=== PATIENT | female | born 1945 | race Hispanic/Latino ===

== ENCOUNTER → 2017-07-03 | Outpatient (CLI) | payer MEDICARE | END | disposition home or self-care (01) | LOC: RAH 13:53 | PROVIDERS: ATTEND Family Medicine | DX: R06.02 Shortness of breath (principal) | CPT/HCPCS: 71046 ==

== ENCOUNTER → 2017-08-15 | Outpatient (CLI) | payer OTHER, MEDICARE | END | disposition home or self-care (01) | LOC: SHCH 08:52 | PROVIDERS: ATTEND Internal Medicine Cardiovascular Disease | DX: I08.0 Rheumatic disorders of both mitral and aortic valves (principal); I10 Essential (primary) hypertension; Z95.0 Presence of cardiac pacemaker | CPT/HCPCS: 93306 ==

== ENCOUNTER → 2018-11-13 | Outpatient (CLI) | payer OTHER, MEDICARE | END | disposition home or self-care (01) | LOC: RAH 13:37 | PROVIDERS: ATTEND Family Medicine | DX: M79.605 Pain in left leg (principal); R60.0 Localized edema; M79.89 Other specified soft tissue disorders | CPT/HCPCS: 93971 ==

== ENCOUNTER → 2018-12-11 | Outpatient (CLI) | payer OTHER, MEDICARE | END | disposition home or self-care (01) | LOC: SHCH 10:53 | PROVIDERS: ATTEND Internal Medicine Cardiovascular Disease | DX: I11.9 Hypertensive heart disease without heart failure (principal); I08.3 Combined rheumatic disorders of mitral, aortic and tricuspid valves | CPT/HCPCS: 93306 ==

== ENCOUNTER → 2018-12-22 | Outpatient (CLI) | payer OTHER, MEDICARE | END | disposition home or self-care (01) | LOC: SHCH 13:04 | PROVIDERS: ATTEND Internal Medicine Cardiovascular Disease | DX: R60.9 Edema, unspecified (principal) | CPT/HCPCS: 93970 ==

== ENCOUNTER → 2019-12-15 | Outpatient (CLI) | payer OTHER, MEDICARE | END | disposition home or self-care (01) | LOC: SHCH 08:16 | PROVIDERS: ATTEND Internal Medicine Cardiovascular Disease | DX: R01.1 Cardiac murmur, unspecified (principal); R09.89 Other specified symptoms and signs involving the circulatory and respiratory systems; R60.9 Edema, unspecified | CPT/HCPCS: 93306; 93880; 93970 ==

== ENCOUNTER → 2019-12-30 | Outpatient (CLI) | payer OTHER, MEDICARE | END | disposition home or self-care (01) | LOC: RAH 10:24 | PROVIDERS: ATTEND Family Medicine | DX: M79.89 Other specified soft tissue disorders (principal); R60.0 Localized edema | CPT/HCPCS: 93971 ==

== ENCOUNTER → 2020-03-20 | Outpatient (CLI) | payer OTHER, MEDICARE | END | disposition home or self-care (01) | LOC: RAH 11:01 | PROVIDERS: ATTEND Family Medicine | DX: R59.0 Localized enlarged lymph nodes (principal) | CPT/HCPCS: 76882 ==

== ENCOUNTER 2020-06-24 12:37 | Emergency (ER) | payer OTHER, MEDICARE ==
[2020-06-24 13:08] LABS: BASOPHILS % (AUTO) 0.2 % (0.0-5.0); EOSINOPHILS % (AUTO) 0.2 % (0.0-8.0); HEMATOCRIT 33.4 % (36-48); LYMPHOCYTES % (AUTO) 7.1 % (21.0-51.0); MEAN CORPUSCULAR HEMOGLOBIN 30.5 pg (27.0-33.0); MEAN CORPUSCULAR HGB CONC 31.1 g/dL (32.0-36.0); MEAN CORPUSCULAR VOLUME 97.9 fL (79-99); MONOCYTES % (AUTO) 5.3 % (3.0-13.0); NEUTROPHILS % (AUTO) 86.8 % (40.0-77.0); PLATELET COUNT (AUTO) 66 K/uL (130-400); RED BLOOD CELL COUNT(AUTO) 3.41 MIL/uL (4.00-5.50); WHITE BLOOD COUNT (AUTO) 4.9 K/uL (4.8-10.8)
[2020-06-24 13:19] LABS: CREATININE 1.7 mg/dL (0.5-1.5)
[2020-06-24 13:20] LABS: ALBUMIN 2.8 g/dL (3.5-5.0)
[2020-06-24] MEDS ORDERED: SODIUM CHLORIDE 0.9% 1000ML 1,000 ML IV ONE (13:25)
[2020-06-24 13:26] LABS: RAPID GROUP A STREP NEGATIVE (NEGATIVE)
[2020-06-24] MEDS ORDERED: DiphenhydrAMINE HCL 50 MG/ML VIAL ONE (13:26)
[2020-06-24] MEDS ORDERED: METOCLOPRAMIDE 10 MG/2 ML VIAL ONE (13:26)
[2020-06-24] MEDS ORDERED: ACETAMINOPHEN EXTRA STRENGTH 500 MG TABLET ONE (13:27)
[2020-06-24 13:37] LABS: TOTAL PROTEIN, SERUM 6.5 g/dL (6.0-8.3)
[2020-06-24 13:47] LABS: PLATELET MORPHOLOGY COMMENT MARKED DECREASE
[2020-06-24 13:57] LABS: APPEARANCE,URINE Clear (CLEAR); BILIRUBIN,URINE Negative (NEGATIVE); COLOR,URINE Yellow (YELLOW); GLUCOSE, URINE (UA) Negative (NEGATIVE); KETONES,URINE Negative (NEGATIVE); LEUKOCYTE ESTERASE ,URINE Moderate (NEGATIVE); NITRATE,URINE Negative (NEGATIVE); OCCULT BLOOD,URINE Small (NEGATIVE); PROTEIN,URINE POS 1+ mg/dL (NEGATIVE)
[2020-06-24 14:05] LABS: SQUAMOUS EPITHELIAL CELL,UR Few /HPF (0-2)
[2020-06-24 14:06] LABS: BACTERIA,URINE Moderate /HPF (None Seen)
[2020-06-24] MEDS ORDERED: CEFTRIAXONE SODIUM 1 GM ONE (14:40)
[2020-06-24] MEDS ORDERED: KETOROLAC TROMETHAMINE 15MG/ML ONE (14:40)
== END 2020-06-24 15:00 | disposition home or self-care (01) ==
LOC: EDH 12:37
DX: N39.0 Urinary tract infection, site not specified (principal); E86.0 Dehydration; R53.83 Other fatigue; Z20.822 Contact with and (suspected) exposure to COVID-19; E11.9 Type 2 diabetes mellitus without complications; I10 Essential (primary) hypertension; E78.00 Pure hypercholesterolemia, unspecified; Z88.6 Allergy status to analgesic agent; Z95.0 Presence of cardiac pacemaker; Z98.890 Other specified postprocedural states
CPT/HCPCS: 36415; 71045; 80053; 81001; 83605; 84484; 85025; 87077; 87088; 87186; 87426; 87804 ×2; 87880; 93005; 96361; 96365; 96375; 99285; J0696; J1200; J1885; J2765; J7030; U0003

== ENCOUNTER 2020-06-27 13:00 | Observation (INO) | payer OTHER, MEDICARE ==
[2020-06-27 13:56] LABS: BASOPHILS % (AUTO) 0.3 % (0.0-5.0); EOSINOPHILS % (AUTO) 2.9 % (0.0-8.0); HEMATOCRIT 29.9 % (36-48); LYMPHOCYTES % (AUTO) 18.1 % (21.0-51.0); MEAN CORPUSCULAR HEMOGLOBIN 30.5 pg (27.0-33.0); MEAN CORPUSCULAR HGB CONC 31.1 g/dL (32.0-36.0); MONOCYTES % (AUTO) 8.6 % (3.0-13.0); NEUTROPHILS % (AUTO) 69.2 % (40.0-77.0); PLATELET COUNT (AUTO) 98 K/uL (130-400); RED BLOOD CELL COUNT(AUTO) 3.05 MIL/uL (4.00-5.50); RED CELL DISTRIBUTION WIDTH 14.1 % (11.0-15.5); WHITE BLOOD COUNT (AUTO) 3.5 K/uL (4.8-10.8)
[2020-06-27 14:05] LABS: CREATININE 1.9 mg/dL (0.5-1.5); POTASSIUM 4.3 mmol/L (3.5-5.1)
[2020-06-27 14:10] LABS: ALBUMIN 2.8 g/dL (3.5-5.0); BILIRUBIN,TOTAL 0.5 mg/dL (0.2-1.0); TOTAL PROTEIN, SERUM 6.1 g/dL (6.0-8.3)
[2020-06-27 14:23] LABS: INR 1.12 (0.85-1.15); PROTHROMBIN TIME 12.1 SEC (9.6-11.6)
[2020-06-27 14:24] LABS: PARTIAL THROMBOPLASTIN TIME 29.9 SEC (26.3-35.5)
[2020-06-27] MEDS ORDERED: POTASSIUM CHLORIDE 20 MEQ ERTAB PO PRN (16:45)
[2020-06-27] MEDS ORDERED: DEXTROSE 50%-WATER 50 ML DISP.SYRIN IV PRN (16:45)
[2020-06-27] MEDS: SODIUM CHLORIDE 0.9% 1000ML 1,000 ML IV SCH (16:45)
[2020-06-27] MEDS ORDERED: POTASSIUM CHLORIDE 10% ELIXIR 20 MEQ/15 ML UDCUP PO PRN (16:45)
[2020-06-27] MEDS: PANTOPRAZOLE 40 MG/VIAL IVP SCH ×2 (16:45→21:00)
[2020-06-27] MEDS ORDERED: LIDOCAINE HCL-MPF 1% 2ML VIAL IV PRN ×2 (16:45)
[2020-06-27] MEDS ORDERED: POTASSIUM CHLORIDE 20MEQ/100ML 100 ML IV PRN ×2 (16:45)
[2020-06-27] MEDS ORDERED: MAGNESIUM 2GM PREMIX 50ML 50 ML IV PRN (16:45)
[2020-06-27] MEDS ORDERED: GLUCAGON 1MG KIT 1 MG ML IM PRN (16:45)
[2020-06-27] MEDS ORDERED: PANTOPRAZOLE 40 MG/VIAL ONE (17:28)
[2020-06-27] MEDS ORDERED: SODIUM CHLORIDE 0.9% 1000ML 1,000 ML IV ONE (17:28)
[2020-06-27 17:58] LABS: BASOPHILS % (AUTO) 0.3 % (0.0-5.0); CREATININE 1.8 mg/dL (0.5-1.5); EOSINOPHILS % (AUTO) 3.5 % (0.0-8.0); LYMPHOCYTES % (AUTO) 22.9 % (21.0-51.0); MEAN CORPUSCULAR HGB CONC 31.8 g/dL (32.0-36.0); MEAN CORPUSCULAR VOLUME 97.6 fL (79-99); MONOCYTES % (AUTO) 9.8 % (3.0-13.0); PLATELET COUNT (AUTO) 94 K/uL (130-400); POTASSIUM 3.9 mmol/L (3.5-5.1); RED BLOOD CELL COUNT(AUTO) 2.87 MIL/uL (4.00-5.50); RED CELL DISTRIBUTION WIDTH 13.9 % (11.0-15.5); WHITE BLOOD COUNT (AUTO) 3.7 K/uL (4.8-10.8)
[2020-06-27 18:19] LABS: INR 1.1 (0.85-1.15); PROTHROMBIN TIME 11.9 SEC (9.6-11.6)
[2020-06-27] MEDS ORDERED: PEG 3350/NA SULF,BICARB,CL/KCL 4000 ML SOLN PO SCH (20:00)
[2020-06-28] VITALS (19 sets, daily range): BP systolic 108–180; BP diastolic 47–88
[2020-06-28 05:57] LABS: HEMATOCRIT 31.3 % (36-48)
[2020-06-28 07:47] LABS: ALBUMIN 2.7 g/dL (3.5-5.0); BILIRUBIN,TOTAL 0.5 mg/dL (0.2-1.0); CREATININE 1.7 mg/dL (0.5-1.5); MAGNESIUM 1.8 mg/dL (1.80-2.40); POTASSIUM 4.2 mmol/L (3.5-5.1)
[2020-06-28] MEDS: PANTOPRAZOLE 40 MG/VIAL IVP SCH (09:00)
[2020-06-28] MEDS ORDERED: PANTOPRAZOLE 40 MG/VIAL ONE (09:20)
[2020-06-28] MEDS ORDERED: PROPOFOL 10 MG/ML 20ML VIAL IV ONE (12:06)
[2020-06-28] MEDS: SODIUM CHLORIDE 0.9% 1000ML 1,000 ML IV SCH ×2 (12:45→20:40)
[2020-06-28] MEDS ORDERED: LINA5TAB PO (13:42)
[2020-06-28] MEDS ORDERED: FERR325T22 PO (13:42)
[2020-06-28] MEDS ORDERED: ATOR20TA65 PO (13:42)
[2020-06-28] MEDS ORDERED: GABA-529 PO (13:42)
[2020-06-28] MEDS ORDERED: CIPR500T10 PO (13:49)
[2020-06-28] MEDS ORDERED: OMEP40CA13 PO (13:49)
[2020-06-28] MEDS ORDERED: ERGO500014 PO (13:49)
[2020-06-28] MEDS ORDERED: APIX5TAB PO (13:49)
[2020-06-28] MEDS ORDERED: CHOL500050 PO (13:49)
[2020-06-28] MEDS ORDERED: ISOS30TA92 PO (13:53)
[2020-06-28] MEDS ORDERED: METO100T14 PO (13:53)
[2020-06-28] MEDS ORDERED: PIOG45TA64 PO (13:53)
[2020-06-28 16:23] LABS: HEMATOCRIT 28.5 % (36-48)
[2020-06-28] MEDS: LEVOFLOXACIN 500 MG TABLET PO SCH (16:37)
[2020-06-28] MEDS: GABAPENTIN 100 MG CAPSULE PO SCH (20:39)
[2020-06-28] MEDS: ATORVASTATIN CALCIUM 20 MG TABLET PO SCH (20:40)
[2020-06-28] MEDS: METOPROLOL TARTRATE 50 MG TAB PO SCH (22:55)
[2020-06-28] MEDS: ESOMEPRAZOLE SODIUM 40 MG VIAL IVP SCH (22:55)
[2020-06-28] MEDS: ISOSORBIDE MONO 30MG TAB SR PO SCH (22:55)
[2020-06-29] VITALS (7 sets, daily range): BP systolic 126–149; BP diastolic 59–71
[2020-06-29 05:06] LABS: BASOPHILS % (AUTO) 0.6 % (0.0-5.0); EOSINOPHILS % (AUTO) 4.3 % (0.0-8.0); HEMATOCRIT 25.4 % (36-48); LYMPHOCYTES % (AUTO) 25.5 % (21.0-51.0); MEAN CORPUSCULAR HEMOGLOBIN 30.8 pg (27.0-33.0); MEAN CORPUSCULAR HGB CONC 31.9 g/dL (32.0-36.0); MEAN CORPUSCULAR VOLUME 96.6 fL (79-99); MONOCYTES % (AUTO) 9.5 % (3.0-13.0); NEUTROPHILS % (AUTO) 59.5 % (40.0-77.0); PLATELET COUNT (AUTO) 117 K/uL (130-400); RED BLOOD CELL COUNT(AUTO) 2.63 MIL/uL (4.00-5.50); RED CELL DISTRIBUTION WIDTH 14.3 % (11.0-15.5); WHITE BLOOD COUNT (AUTO) 3.5 K/uL (4.8-10.8)
[2020-06-29] MEDS: LINAGLIPTIN 5 MG TABLET PO SCH (08:36)
[2020-06-29] MEDS: PIOGLITAZONE HCL 45 MG TAB PO SCH (08:36)
[2020-06-29] MEDS: FERROUS SULFATE 325 MG TABLET.DR PO SCH (08:36)
[2020-06-29] MEDS: ESOMEPRAZOLE SODIUM 40 MG VIAL IVP SCH ×2 (08:36→19:40)
[2020-06-29] MEDS: ISOSORBIDE MONO 30MG TAB SR PO SCH ×2 (08:37→19:40)
[2020-06-29] MEDS: METOPROLOL TARTRATE 50 MG TAB PO SCH ×2 (08:37→19:40)
[2020-06-29 10:17] LABS: APPEARANCE,URINE Clear (CLEAR); BILIRUBIN,URINE Negative (NEGATIVE); COLOR,URINE Yellow (YELLOW); GLUCOSE, URINE (UA) Negative (NEGATIVE); KETONES,URINE Negative (NEGATIVE); LEUKOCYTE ESTERASE ,URINE Trace (NEGATIVE); NITRATE,URINE Negative (NEGATIVE); OCCULT BLOOD,URINE Negative (NEGATIVE); PROTEIN,URINE POS 1+ mg/dL (NEGATIVE); UROBILINOGEN,URINE 0.2 mg/dL (0.2-1.0)
[2020-06-29 10:35] LABS: RBC,URINE None Seen /HPF (0-1)
[2020-06-29 10:36] LABS: BACTERIA,URINE Moderate /HPF (None Seen); SQUAMOUS EPITHELIAL CELL,UR Few /HPF (0-2)
[2020-06-29] MEDS: LEVOFLOXACIN 500 MG TABLET PO SCH (15:13)
[2020-06-29] MEDS: SODIUM CHLORIDE 0.9% 1000ML 1,000 ML IV SCH (17:49)
[2020-06-29] MEDS: ATORVASTATIN CALCIUM 20 MG TABLET PO SCH (19:40)
[2020-06-29] MEDS: APIXABAN 5 MG TABLET PO SCH (19:40)
[2020-06-29] MEDS: GABAPENTIN 100 MG CAPSULE PO SCH (19:40)
[2020-06-30 04:00] VITALS: BP_SYST 131; BP_SYST 65; BP_DIAS 46; BP_DIAS 68
[2020-06-30 05:13] LABS: HEMATOCRIT 27.7 % (36-48); MEAN CORPUSCULAR HEMOGLOBIN 29.8 pg (27.0-33.0); MEAN CORPUSCULAR HGB CONC 30.3 g/dL (32.0-36.0); MEAN CORPUSCULAR VOLUME 98.2 fL (79-99); PLATELET COUNT (AUTO) 124 K/uL (130-400); RED BLOOD CELL COUNT(AUTO) 2.82 MIL/uL (4.00-5.50); RED CELL DISTRIBUTION WIDTH 14.6 % (11.0-15.5)
[2020-06-30 05:32] LABS: INR 1.14 (0.85-1.15); PROTHROMBIN TIME 12.3 SEC (9.6-11.6)
[2020-06-30 05:33] LABS: PARTIAL THROMBOPLASTIN TIME 28.8 SEC (26.3-35.5)
[2020-06-30 05:46] LABS: ALBUMIN 2.8 g/dL (3.5-5.0); BILIRUBIN,TOTAL 0.5 mg/dL (0.2-1.0); CREATININE 1.5 mg/dL (0.5-1.5); POTASSIUM 4.4 mmol/L (3.5-5.1)
[2020-06-30 06:29] LABS: BAND NEUTROPHILS % (MANUAL) 2 % (0-2); EOSINOPHILS % (MANUAL) 2 % (1-6); LYMPHOCYTES % (MANUAL) 20 % (22-44); MONOCYTES % (MANUAL) 4 % (2-9); REACTIVE LYMPHOCYTES 2 % (0-0); SEGMENTED NEUTROPHILS % 70 % (40-70)
[2020-06-30 06:30] LABS: MAN.DIFF COMMENT-IMPRESSION MANUAL DIFFERENTIAL; PLATELET MORPHOLOGY COMMENT SLIGHTLY DECREASED
[2020-06-30] MEDS: LINAGLIPTIN 5 MG TABLET PO SCH (08:13)
[2020-06-30] MEDS: APIXABAN 5 MG TABLET PO SCH (08:13)
[2020-06-30] MEDS: METOPROLOL TARTRATE 50 MG TAB PO SCH (08:13)
[2020-06-30] MEDS: PIOGLITAZONE HCL 45 MG TAB PO SCH (08:13)
[2020-06-30] MEDS: ISOSORBIDE MONO 30MG TAB SR PO SCH (08:13)
[2020-06-30] MEDS: FERROUS SULFATE 325 MG TABLET.DR PO SCH (08:14)
[2020-06-30 08:29] VITALS: BP 152/71
[2020-06-30] MEDS ORDERED: PANTOPRAZOLE SODIUM 40 MG TABLET.DR PO SCH (09:00)
[2020-06-30 11:00] VITALS: BP 137/56
[2020-06-30] MEDS: LEVOFLOXACIN 500 MG TABLET PO SCH (15:46)
[2020-06-30 16:00] VITALS: BP 149/67
== END 2020-06-30 18:20 | disposition home or self-care (01) ==
LOC: EDH 13:00 → EDHIP 16:31 → 3AH 06-28 13:51
PROVIDERS: ADMIT Internal Medicine Critical Care Medicine; ATTEND Internal Medicine Critical Care Medicine
DX: K92.1 Melena (principal); Z20.822 Contact with and (suspected) exposure to COVID-19; K57.30 Diverticulosis of large intestine without perforation or abscess without bleeding; J90 Pleural effusion, not elsewhere classified; I31.3 Pericardial effusion (noninflammatory); I48.20 Chronic atrial fibrillation, unspecified; I12.9 Hypertensive chronic kidney disease with stage 1 through stage 4 chronic kidney disease, or unspecified chronic kidney disease; E11.22 Type 2 diabetes mellitus with diabetic chronic kidney disease; N18.30 Chronic kidney disease, stage 3 unspecified; E78.00 Pure hypercholesterolemia, unspecified; D61.818 Other pancytopenia; D63.8 Anemia in other chronic diseases classified elsewhere; I42.9 Cardiomyopathy, unspecified; I25.10 Atherosclerotic heart disease of native coronary artery without angina pectoris; E78.5 Hyperlipidemia, unspecified; K74.60 Unspecified cirrhosis of liver; K76.7 Hepatorenal syndrome; I85.11 Secondary esophageal varices with bleeding; Z95.0 Presence of cardiac pacemaker; Z90.49 Acquired absence of other specified parts of digestive tract; Z79.01 Long term (current) use of anticoagulants; Z79.899 Other long term (current) drug therapy; Z88.5 Allergy status to narcotic agent
CPT/HCPCS: 36415 ×4; 45378; 74176; 76705; 80053 ×3; 81001; 82270; 82728; 82948 ×11; 83540; 83550; 83735; 83880; 85014 ×3; 85018 ×3; 85025 ×4; 85045; 85610 ×3; 85730 ×2; 86850; 86900; 86901 ×2; 87088; 87426; 93005; 93306; 93356; 96361 ×3; 96374; 96376; 99285; A4215; A4222; A4223; A4606; A4620; C9113 ×2; G0378 ×70; J2704; J7030 ×2; U0003; 80048

== ENCOUNTER 2020-10-02 05:58 | Day surgery (SDC) | payer OTHER, MEDICARE ==
[2020-09-29 09:10] LABS: BASOPHILS % (AUTO) 0.6 % (0.0-5.0); EOSINOPHILS % (AUTO) 8.3 % (0.0-8.0); HEMATOCRIT 28.8 % (36-48); LYMPHOCYTES % (AUTO) 29.8 % (21.0-51.0); MEAN CORPUSCULAR HEMOGLOBIN 31.3 pg (27.0-33.0); MEAN CORPUSCULAR HGB CONC 30.9 g/dL (32.0-36.0); MEAN CORPUSCULAR VOLUME 101.4 fL (79-99); MONOCYTES % (AUTO) 9.4 % (3.0-13.0); NEUTROPHILS % (AUTO) 51.3 % (40.0-77.0); PLATELET COUNT (AUTO) 83 K/uL (130-400); RED BLOOD CELL COUNT(AUTO) 2.84 MIL/uL (4.00-5.50); RED CELL DISTRIBUTION WIDTH 16.4 % (11.0-15.5); WHITE BLOOD COUNT (AUTO) 3.4 K/uL (4.8-10.8)
[2020-09-29 09:24] LABS: INR 1.1 (0.85-1.15); PROTHROMBIN TIME 11.9 SEC (9.6-11.6)
[2020-09-29 09:25] LABS: PARTIAL THROMBOPLASTIN TIME 29.6 SEC (26.3-35.5); POTASSIUM 5.1 mmol/L (3.5-5.1)
[2020-09-29 09:48] VITALS: BP 112/44
[~2020-10-02] VITALS: Ht 154.9 cm; Wt 60.7 kg
[~2020-10-02 05:58] MED LIST: ALLO300T2 PO; APIX5TAB PO; ATOR20TA65 PO; CHOL500050 PO; ERGO500093 PO; FERR325T22 PO; GABA-529 PO; ISOS30TA92 PO; LINA145C PO; LINA5TAB PO; METO100T14 PO; METO2.5T2 PO; OMEP40CA21 PO; PANT40TA54 PO; SACU1TAB PO; SODIUM CHLORIDE 0.9% 1000ML 1,000 ML IV SCH; SPIR25TA PO
== END 2020-10-02 17:51 | disposition home or self-care (01) ==
LOC: DAH 05:58
PROVIDERS: ATTEND Internal Medicine Cardiovascular Disease
DX: I42.0 Dilated cardiomyopathy (principal); I44.7 Left bundle-branch block, unspecified; I48.91 Unspecified atrial fibrillation; Z79.01 Long term (current) use of anticoagulants; Z53.8 Procedure and treatment not carried out for other reasons
CPT/HCPCS: 36415; 80048; 85025; 85610; 85730; 93005

== ENCOUNTER → 2020-10-25 | Outpatient (CLI) | payer OTHER, MEDICARE ==
[~2020-10-25] MED LIST changes: -SODIUM CHLORIDE 0.9% 1000ML 1,000 ML IV SCH
== END | disposition home or self-care (01) ==
LOC: RAH 14:35
PROVIDERS: ATTEND Internal Medicine Cardiovascular Disease
DX: I08.3 Combined rheumatic disorders of mitral, aortic and tricuspid valves (principal); I31.3 Pericardial effusion (noninflammatory); R55 Syncope and collapse
CPT/HCPCS: 93306; 93356

== ENCOUNTER → 2020-11-27 | Outpatient (CLI) | payer OTHER, MEDICARE | END | disposition home or self-care (01) | LOC: SHCH 10:24 | PROVIDERS: ATTEND Internal Medicine Cardiovascular Disease | DX: I08.3 Combined rheumatic disorders of mitral, aortic and tricuspid valves (principal); I27.20 Pulmonary hypertension, unspecified; I31.3 Pericardial effusion (noninflammatory); I49.5 Sick sinus syndrome; E11.9 Type 2 diabetes mellitus without complications | CPT/HCPCS: 93306 ==

== ENCOUNTER 2022-04-16 07:32 | Day surgery (SDC) | payer OTHER, MEDICARE ==
[2022-04-10 10:50] LABS: BASOPHILS % (AUTO) 0.6 % (0.0-5.0); EOSINOPHILS % (AUTO) 4.3 % (0.0-8.0); LYMPHOCYTES % (AUTO) 21.6 % (21.0-51.0); MEAN CORPUSCULAR HEMOGLOBIN 30.5 pg (27.0-33.0); MEAN CORPUSCULAR HGB CONC 30.6 g/dL (32.0-36.0); MEAN CORPUSCULAR VOLUME 99.7 fL (79-99); MONOCYTES % (AUTO) 6.8 % (3.0-13.0); NEUTROPHILS % (AUTO) 66.3 % (40.0-77.0); PLATELET COUNT (AUTO) 176 K/uL (130-400); RED BLOOD CELL COUNT(AUTO) 3.11 MIL/uL (4.00-5.50); RED CELL DISTRIBUTION WIDTH 14.6 % (11.0-15.5); WHITE BLOOD COUNT (AUTO) 4.9 K/uL (4.8-10.8)
[2022-04-10 10:58] LABS: CREATININE 2.2 mg/dL (0.5-1.5); POTASSIUM 5.9 mmol/L (3.5-5.1)
[2022-04-10 11:01] LABS: INR 0.99 (0.85-1.15); PROTHROMBIN TIME 10.8 SEC (9.6-11.6)
[2022-04-10 11:02] LABS: PARTIAL THROMBOPLASTIN TIME 27.5 SEC (26.3-35.5)
[2022-04-15 13:20] VITALS: BP 140/52
[2022-04-16] VITALS (11 sets, daily range): BP systolic 153–173; BP diastolic 74–89
[~2022-04-16] VITALS: Ht 157.5 cm; Wt 57.3 kg
[~2022-04-16 07:32] MED LIST changes: -ALLO300T2 PO; +APIX2.5T PO; -APIX5TAB PO; -CHOL500050 PO; -ERGO500093 PO; +FURO20TA4 PO; +NITR0.4T50 SL; -PANT40TA54 PO; -SACU1TAB PO; +SODI650T PO; -SPIR25TA PO
[2022-04-16] MEDS ORDERED: 0.9%NACL 1000ML 1,000 ML IV SCH (08:00)
[2022-04-16] MEDS ORDERED: CEFAZOLIN SODIUM 2 GM VIAL IVPB SCH (08:00)
[2022-04-16] MEDS ORDERED: MIDAZOLAM HCL 1 MG/ML 2ML VIAL ONE ×2 (10:09→10:47)
[2022-04-16] MEDS ORDERED: MEPERIDINE-PF 25 MG/ML SYG ONE ×2 (10:09→10:47)
[2022-04-16] MEDS ORDERED: LIDOCAINE HCL 1% 20 ML VIAL ONE (10:09)
[2022-04-16] MEDS ORDERED: BUPIVACAINE/PF 0.25% 30ML VIAL IJ ONE (10:09)
[2022-04-16] MEDS ORDERED: CEFAZOLIN SODIUM 1 GM VIAL ONE ×2 (10:11→16:34)
[2022-04-16] MEDS ORDERED: THROMBIN-JMI 5000 UNIT/VIAL TP ONE (10:41)
[2022-04-16] MEDS ORDERED: BACITRACIN 1 EACH PACKET TP ONE (11:01)
[2022-04-16] MEDS ORDERED: ACETAMINOPHEN WITH CODEINE 1 TAB TAB PO PRN ×2 (12:00)
[2022-04-16] MEDS ORDERED: ONDANSETRON 4MG INJ IV PRN (12:00)
[2022-04-16] MEDS ORDERED: CEFAZOLIN SODIUM 2 GM VIAL IVP SCH (16:30)
== END 2022-04-16 17:03 | disposition home or self-care (01) ==
LOC: DAH 07:32
PROVIDERS: ATTEND Internal Medicine Cardiovascular Disease
DX: Z45.010 Encounter for checking and testing of cardiac pacemaker pulse generator [battery] (principal); I49.5 Sick sinus syndrome; I12.9 Hypertensive chronic kidney disease with stage 1 through stage 4 chronic kidney disease, or unspecified chronic kidney disease; E11.22 Type 2 diabetes mellitus with diabetic chronic kidney disease; N18.9 Chronic kidney disease, unspecified; K21.9 Gastro-esophageal reflux disease without esophagitis; I48.91 Unspecified atrial fibrillation; D64.9 Anemia, unspecified; Z79.01 Long term (current) use of anticoagulants; Z79.899 Other long term (current) drug therapy; Z88.6 Allergy status to analgesic agent; Z98.890 Other specified postprocedural states
CPT/HCPCS: 80048; 85025; 85610; 85730; 36415; 93005; 33228; 82948; C1785; J0690 ×2; J3490 ×2; J2250 ×2; J2175 ×2; A4215; A4222; A4221; A4663; A4216; A4606; A4223 ×3; 99156; 99157; C1751

== ENCOUNTER → 2022-08-01 | Outpatient (CLI) | payer OTHER, MEDICARE | END | disposition home or self-care (01) | LOC: SHCH 08:04 | PROVIDERS: ATTEND Internal Medicine Cardiovascular Disease | DX: I08.0 Rheumatic disorders of both mitral and aortic valves (principal); I31.39 Other pericardial effusion (noninflammatory); I11.9 Hypertensive heart disease without heart failure; R00.1 Bradycardia, unspecified; E11.9 Type 2 diabetes mellitus without complications; E78.5 Hyperlipidemia, unspecified | CPT/HCPCS: 93306 ==

== ENCOUNTER → 2022-10-24 | Outpatient (CLI) | payer OTHER, MEDICARE | END | disposition home or self-care (01) | LOC: SHCH 10:56 | PROVIDERS: ATTEND Internal Medicine Cardiovascular Disease | DX: I08.1 Rheumatic disorders of both mitral and tricuspid valves (principal); I10 Essential (primary) hypertension; E11.9 Type 2 diabetes mellitus without complications; I31.39 Other pericardial effusion (noninflammatory); E78.5 Hyperlipidemia, unspecified; Z95.2 Presence of prosthetic heart valve | CPT/HCPCS: 93306 ==

== ENCOUNTER → 2022-11-01 | Outpatient (CLI) | payer OTHER, MEDICARE ==
[~2022-11-01] MED LIST changes: +REGADENOSON 0.4 MG/5 ML PF SYG IVP ONE
== END | disposition home or self-care (01) ==
LOC: SHCH 08:08
PROVIDERS: ATTEND Internal Medicine Cardiovascular Disease
DX: I48.20 Chronic atrial fibrillation, unspecified (principal); I51.7 Cardiomegaly; R07.89 Other chest pain; Z95.0 Presence of cardiac pacemaker
CPT/HCPCS: 78452; 96374; 93017; J2785; A9500 ×2

== ENCOUNTER 2023-02-10 07:02 | Day surgery (SDC) | payer OTHER, MEDICARE ==
[2023-02-06 15:24] LABS: BASOPHILS # (AUTO) 0.03 K/uL (0.00-0.20); BASOPHILS % (AUTO) 0.5 % (0.0-5.0); EOSINOPHILS # (AUTO) 0.22 K/uL (0.00-0.70); EOSINOPHILS % (AUTO) 3.9 % (0.0-8.0); HEMATOCRIT 33.2 % (36-48); IMMATURE GRANULOCYTE ABSOLUTE 0.01 K/uL (0-1); LYMPHOCYTES # (AUTO) 1.4 K/uL (1.0-4.8); LYMPHOCYTES % (AUTO) 24.8 % (21.0-51.0); MEAN CORPUSCULAR HEMOGLOBIN 29.8 pg (27.0-33.0); MONOCYTES # (AUTO) 0.6 K/uL (0.1-1.0); MONOCYTES % (AUTO) 9.8 % (3.0-13.0); NEUTROPHILS # (AUTO) 3.5 K/uL (1.8-7.7); NEUTROPHILS % (AUTO) 60.8 % (40.0-77.0); PLATELET COUNT (AUTO) 122 K/uL (130-400); RED BLOOD CELL COUNT(AUTO) 3.46 MIL/uL (4.00-5.50); RED CELL DISTRIBUTION WIDTH 13.2 % (11.0-15.5); WHITE BLOOD COUNT (AUTO) 5.7 K/uL (4.8-10.8)
[2023-02-06 15:38] LABS: CREATININE 2.3 mg/dL (0.5-1.5); POTASSIUM 5.7 mmol/L (3.5-5.1)
[2023-02-06 15:58] VITALS: BP 145/66; PULSE 71; RESP 18
[2023-02-06 17:33] LABS: INR 0.94 (0.85-1.15); PROTHROMBIN TIME 10.9 SEC (9.6-11.6)
[2023-02-06 17:34] LABS: PARTIAL THROMBOPLASTIN TIME 30.3 SEC (26.3-35.5)
[~2023-02-10] VITALS: Ht 152.4 cm; Wt 61.2 kg
[2023-02-10] VITALS (13 sets, daily range): BP systolic 132–156; BP diastolic 51–69; PULSE 70–79; RESP 9–16
[~2023-02-10 07:02] MED LIST changes: -GABA-529 PO; +GABA300C PO; +INSU300I SQ; -LINA5TAB PO; -METO100T14 PO; +METO50TA18 PO; -REGADENOSON 0.4 MG/5 ML PF SYG IVP ONE; +vitamin b12 PO
[2023-02-10] MEDS ORDERED: 0.9%NACL 1000ML 1,000 ML IV ONE (07:26)
[2023-02-10 07:37] LABS: CREATININE 2.6 mg/dL (0.5-1.5); POTASSIUM 5.6 mmol/L (3.5-5.1)
[2023-02-10] MEDS ORDERED: DAPA10TA PO (08:06)
[2023-02-10] MEDS ORDERED: VITA-380 PO (08:06)
[2023-02-10] MEDS ORDERED: LIDOCAINE HCL 1% MDV 50ML VIAL ONE (10:21)
[2023-02-10] MEDS ORDERED: MEPERIDINE-PF 25 MG/ML SYG ONE (10:21)
[2023-02-10] MEDS ORDERED: MIDAZOLAM HCL 1 MG/ML 2ML VIAL ONE (10:22)
[2023-02-10] MEDS ORDERED: CEFAZOLIN SODIUM 1 GM VIAL ONE (10:22)
[2023-02-10] MEDS ORDERED: BUPIVACAINE/PF 0.25% 30ML VIAL IJ ONE (10:22)
[2023-02-10] MEDS ORDERED: THROMBIN-JMI 5000 UNIT/VIAL TP ONE (11:46)
[2023-02-10] MEDS ORDERED: BACITRACIN 1 EACH PACKET TP ONE (12:21)
[2023-02-10] MEDS ORDERED: ONDANSETRON 4MG INJ IV PRN (12:30)
[2023-02-10] MEDS ORDERED: ACETAMINOPHEN 325 MG TAB PO PRN ×2 (12:30)
[2023-02-10] MEDS ORDERED: INSULIN HUMULIN R 100 UNIT/ML 3ML SQ SCH (16:30)
== END 2023-02-10 21:10 | disposition home or self-care (01) ==
LOC: DAH 07:02
PROVIDERS: ATTEND Internal Medicine Cardiovascular Disease
DX: I49.5 Sick sinus syndrome (principal); I42.9 Cardiomyopathy, unspecified; E11.22 Type 2 diabetes mellitus with diabetic chronic kidney disease; I13.2 Hypertensive heart and chronic kidney disease with heart failure and with stage 5 chronic kidney disease, or end stage renal disease; N18.5 Chronic kidney disease, stage 5; I50.42 Chronic combined systolic (congestive) and diastolic (congestive) heart failure; I44.7 Left bundle-branch block, unspecified; Z79.899 Other long term (current) drug therapy; Z98.890 Other specified postprocedural states; Z98.891 History of uterine scar from previous surgery; Z88.6 Allergy status to analgesic agent; Z98.41 Cataract extraction status, right eye; Z98.42 Cataract extraction status, left eye
CPT/HCPCS: 80048 ×2; 85025; 85610; 85730; 36415 ×2; 71045 ×2; 93005 ×2; 33216; 82948 ×2; C1769; C1898; C1894; J0690; J7030; J3490 ×3; J2250; J2175; A4215; A4222; A4221; A4663; A4216; A4606; A4223 ×3; 33207; 99156; 99157; C1785

== ENCOUNTER → 2023-10-17 | Outpatient (CLI) | payer OTHER, MEDICARE ==
[~2023-10-17] MED LIST changes: +DAPA10TA PO; -SODI650T PO; +VITA-380 PO
[2023-10-17 12:19] LABS: BASOPHILS # (AUTO) 0.02 K/uL (0.00-0.20); BASOPHILS % (AUTO) 0.5 % (0.0-5.0); EOSINOPHILS # (AUTO) 0.14 K/uL (0.00-0.70); EOSINOPHILS % (AUTO) 3.6 % (0.0-8.0); HEMATOCRIT 31.2 % (36-48); IMMATURE GRANULOCYTE ABSOLUTE 0.01 K/uL (0-1); LYMPHOCYTES # (AUTO) 0.9 K/uL (1.0-4.8); LYMPHOCYTES % (AUTO) 23.3 % (21.0-51.0); MEAN CORPUSCULAR HEMOGLOBIN 28.5 pg (27.0-33.0); MEAN CORPUSCULAR HGB CONC 30.4 g/dL (32.0-36.0); MEAN CORPUSCULAR VOLUME 93.7 fL (79-99); MONOCYTES # (AUTO) 0.4 K/uL (0.1-1.0); MONOCYTES % (AUTO) 10.1 % (3.0-13.0); NEUTROPHILS # (AUTO) 2.4 K/uL (1.8-7.7); NEUTROPHILS % (AUTO) 62.2 % (40.0-77.0); PLATELET COUNT (AUTO) 130 K/uL (130-400); RED BLOOD CELL COUNT(AUTO) 3.33 MIL/uL (4.00-5.50); RED CELL DISTRIBUTION WIDTH 14.5 % (11.0-15.5); WHITE BLOOD COUNT (AUTO) 3.9 K/uL (4.8-10.8)
[2023-10-17 12:48] LABS: ALBUMIN 3.4 g/dL (3.5-5.0); BILIRUBIN,TOTAL 0.4 mg/dL (0.2-1.0); CREATININE 2.3 mg/dL (0.5-1.0); POTASSIUM 5.5 mmol/L (3.5-5.1); THYROID STIMULATING HORMONE 2.8 uIU/mL (0.36-3.74); TOTAL PROTEIN, SERUM 7.4 g/dL (6.0-8.3)
== END | disposition home or self-care (01) ==
LOC: LAB 08:09
PROVIDERS: ATTEND Internal Medicine Cardiovascular Disease
DX: R07.9 Chest pain, unspecified (principal); Z79.899 Other long term (current) drug therapy
CPT/HCPCS: 36415; 80053; 80061; 83880; 84436; 84443; 84479; 85025

== ENCOUNTER → 2023-11-24 | Outpatient (CLI) | payer OTHER, MEDICARE ==
[2023-11-24] MEDS: REGADENOSON 0.4 MG/5 ML PF SYG IVP ONE (11:10)
== END | disposition home or self-care (01) ==
LOC: SHCH 08:06
PROVIDERS: ATTEND Internal Medicine Cardiovascular Disease
DX: I51.7 Cardiomegaly (principal); R07.9 Chest pain, unspecified; Z95.0 Presence of cardiac pacemaker
CPT/HCPCS: 78452; 93017; J2785; A9500 ×2; 96374

== ENCOUNTER → 2023-12-03 | Outpatient (CLI) | payer OTHER, MEDICARE ==
[2023-12-03 16:54] LABS: ALBUMIN 3.4 g/dL (3.5-5.0); BILIRUBIN,TOTAL 0.3 mg/dL (0.2-1.0); CREATININE 2.8 mg/dL (0.5-1.0); POTASSIUM 5.1 mmol/L (3.5-5.1); TOTAL PROTEIN, SERUM 7.2 g/dL (6.0-8.3)
== END | disposition home or self-care (01) ==
LOC: LAB 14:52
PROVIDERS: ATTEND Internal Medicine Cardiovascular Disease
DX: I10 Essential (primary) hypertension (principal)
CPT/HCPCS: 36415; 80053; 83735; 83880